=== PATIENT | female | born 1990 | race Caucasian/White ===

== ENCOUNTER 2017-03-09 01:01 | Inpatient (IN) | payer OTHER, SELFPAY | END 2017-03-12 09:55 | disposition home or self-care (01) | DRG 765 | PROVIDERS: Admitting Provider Obstetrics & Gynecology; Visit Provider Obstetrics & Gynecology | DX: O32.1XX0 Maternal care for breech presentation, not applicable or unspecified (principal); O24.013 Pre-existing type 1 diabetes mellitus, in pregnancy, third trimester; Z3A.37 37 weeks gestation of pregnancy; Z37.0 Single live birth; E10.9 Type 1 diabetes mellitus without complications; Z79.4 Long term (current) use of insulin | CPT/HCPCS: 59514; 36415; 59025; 80053; 81001; 82800; 82962; 85014; 85018; 85025; 86850; 86900; 86901; 90686; 90707; 94762; J2405 ==

== ENCOUNTER 2017-03-13 00:21 | Emergency (ER) | payer OTHER, SELFPAY | END 2017-03-13 03:26 | disposition home or self-care (01) | PROVIDERS: Emergency Provider Emergency Medicine; Visit Provider Emergency Medicine | DX: T88.59XA Other complications of anesthesia, initial encounter (principal); G44.40 Drug-induced headache, not elsewhere classified, not intractable; Z88.1 Allergy status to other antibiotic agents; E11.9 Type 2 diabetes mellitus without complications; F41.9 Anxiety disorder, unspecified | CPT/HCPCS: 36415; 80053; 85025; 96365; 96375; 96376; 99284; J2405 ==